=== PATIENT | female | born 1955 | race Caucasian/White ===

== ENCOUNTER 2016-10-19 10:37 | Emergency (ER) | payer BC, OTHER ==
[~2016-10-19] VITALS: Ht 167.6 cm; Wt 62.3 kg
[2016-10-19] MEDS ORDERED: HYDROmorphone 1 MG/ML, 1ML IM ONE (11:30)
[2016-10-19] MEDS ORDERED: METHOCARBAMOL 750 MG TABLET PO ONE (11:30)
[2016-10-19] MEDS ORDERED: HYDROmorphone 2 MG/ML, 1ML ONE (11:37)
[2016-10-19] MEDS ORDERED: METHOCARBAMOL 750 MG TABLET ONE (11:37)
[2016-10-19 12:25] VITALS: BP 135/84
== END 2016-10-19 12:27 | disposition home or self-care (01) ==
LOC: ED 12:20
DX: M62.830 Muscle spasm of back (principal); M54.41 Lumbago with sciatica, right side; J45.909 Unspecified asthma, uncomplicated; J44.9 Chronic obstructive pulmonary disease, unspecified; I10 Essential (primary) hypertension; F17.200 Nicotine dependence, unspecified, uncomplicated
CPT/HCPCS: 96372; 99283; J1170

== ENCOUNTER 2017-03-05 06:42 | Inpatient (IN) | payer OTHER ==
[~2017-03-05] VITALS: Ht 167.6 cm; Wt 62.8 kg
[2017-03-05] MEDS ORDERED: ACYC-113 PO (07:02)
[2017-03-05] MEDS ORDERED: FLUT1AER INH (07:02)
[2017-03-05] MEDS ORDERED: MORPHINE SULFATE 4 MG/ML, 1ML ONE ×2 (07:13→12:17)
[2017-03-05] MEDS: MORPHINE SULFATE 4 MG/ML, 1ML IVPush PRN ×2 (07:24→12:18)
[2017-03-05] MEDS ORDERED: SODIUM CHLORIDE FLUSH 10ML SYR IVF ONE (07:30)
[2017-03-05 07:41] LABS: HEMOGLOBIN 16.1 g/dL (11.7-16.4); WHITE BLOOD COUNT 4.8 x10^3/uL (3.4-10)
[2017-03-05 07:46] LABS: BLOOD UREA NITROGEN 17 mg/dL (7-18)
[2017-03-05 07:52] LABS: IS PT STATUS REG ER OR PRE ER? YES
[2017-03-05] MEDS ORDERED: ACETAMINOPHEN 500 MG TABLET PO ONE (09:30)
[2017-03-05] MEDS ORDERED: ACETAMINOPHEN 500 MG TABLET ONE (09:31)
[2017-03-05] MEDS ORDERED: NITROGLYCERIN 0.4 MG/SPRAY SL PRN (11:30)
[2017-03-05] MEDS ORDERED: ENOXAPARIN 40 MG/0.4 ML SQ SCH (11:30)
[2017-03-05] MEDS ORDERED: LABETALOL 5MG/ML, 20ML IVPush PRN (11:30)
[2017-03-05] MEDS ORDERED: morphine SULFATE 10 MG/ML, 1ML IVPush PRN (11:30)
[2017-03-05] MEDS ORDERED: DOCUSATE 100 MG CAPSULE PO PRN (11:30)
[2017-03-05] MEDS ORDERED: POLYETHYLENE GLYCOL 17 GM PACKET PO PRN (11:30)
[2017-03-05] MEDS ORDERED: BISACODYL 10 MG SUPP PR PRN (11:30)
[2017-03-05] MEDS ORDERED: ONDANSETRON 2MG/ML, 2ML IVPush PRN (11:30)
[2017-03-05] MEDS ORDERED: LORazepam 1MG TABLET PO PRN (11:30)
[2017-03-05] MEDS ORDERED: ONDANSETRON ODT 4 MG PO PRN (11:30)
[2017-03-05] MEDS ORDERED: ACETAMINOPHEN 325 MG TABLET PO PRN (11:30)
[2017-03-05] MEDS ORDERED: ACYCLOVIR 200 MG CAPSULE PO PRN (11:30)
[2017-03-05 13:20] LABS: IS PT STATUS REG ER OR PRE ER? YES
[2017-03-05 18:26] VITALS: BP 118/82
[2017-03-05 19:53] LABS: IS PT STATUS REG ER OR PRE ER? NO
[2017-03-06 02:25] VITALS: BP 109/79
[2017-03-06 05:09] LABS: HEMATOCRIT 43.6 % (34.6-47.8); HEMOGLOBIN 14.7 g/dL (11.7-16.4); WHITE BLOOD COUNT 5.8 x10^3/uL (3.4-10)
[2017-03-06 05:48] LABS: BLOOD UREA NITROGEN 18 mg/dL (7-18)
[2017-03-06 06:40] VITALS: BP 106/74
[2017-03-06] MEDS ORDERED: FLUTICASONE/VILANTEROL 100-25MCG/INH INH SCH (09:00)
== END 2017-03-06 14:48 | disposition home or self-care (01) | DRG 313 ==
LOC: ED 07:08 → EDIP 10:37 → 5SO 13:30 → DCLOUNGE 03-06 14:12
DX: R07.89 Other chest pain (principal); I10 Essential (primary) hypertension; F17.200 Nicotine dependence, unspecified, uncomplicated; G44.209 Tension-type headache, unspecified, not intractable; J44.9 Chronic obstructive pulmonary disease, unspecified; Z86.73 Personal history of transient ischemic attack (TIA), and cerebral infarction without residual deficits; N95.1 Menopausal and female climacteric states; M19.90 Unspecified osteoarthritis, unspecified site; G89.29 Other chronic pain; M54.89 Other dorsalgia; F41.9 Anxiety disorder, unspecified; F32.9 Major depressive disorder, single episode, unspecified; Z90.89 Acquired absence of other organs; Z90.710 Acquired absence of both cervix and uterus
CPT/HCPCS: 36415; 70450; 71010; 78452; 80048; 80061; 82040; 84443; 84484; 85025; 85379; 93005; 93017; 96374; 96376; J1650; A9502; C9898

== ENCOUNTER → 2017-06-24 | Outpatient (CLI) | payer OTHER ==
[~2017-06-24] MED LIST: ACYC-113 PO; FLUT1AER INH
== END | disposition home or self-care (01) ==
LOC: RAD 15:54
PROVIDERS: ATTEND Nurse Practitioner
DX: J43.9 Emphysema, unspecified (principal)
CPT/HCPCS: 71250

== ENCOUNTER → 2017-09-11 | Outpatient (CLI) | payer OTHER ==
[2017-09-11 08:20] LABS: MICROSCOPIC NOT IND
[2017-09-11 08:23] LABS: ALANINE AMINOTRANSFERASE 20 U/L (12-78); ALBUMIN 3.8 g/dL (3.4-5.0); ANION GAP 8 mmol/L (5-15); CALCIUM 8.3 mg/dL (8.5-10.1); CHLORIDE 107 mmol/L (98-107); CREATININE 0.74 mg/dL (0.55-1.02)
[2017-09-11 08:26] LABS: BASOPHILS # (AUTO) 0.03 x10^3/uL (0-0.1); BASOPHILS % (AUTO) 1 % (0-1); EOSINOPHILS # (AUTO) 0.04 x10^3/uL (0-0.4); EOSINOPHILS % (AUTO) 1 % (1-7); LYMPHOCYTES # (AUTO) 2.84 x10^3/uL (1-3.4); LYMPHOCYTES % (AUTO) 43 % (22-44); MD NO; MEAN CORPUSCULAR HEMOGLOBIN 33.6 pg (27.0-34.8); MEAN CORPUSCULAR HGB CONC 34.6 g/dL (32.4-35.8); MEAN PLATELET VOLUME 8.1 fL (7.4-10.4); MONOCYTES # (AUTO) 0.51 x10^3/uL (0.2-0.8); MONOCYTES % (AUTO) 8 % (2-9); NEUTROPHILS # (AUTO) 3.19 x10^3/uL (1.8-6.8); NEUTROPHILS % (AUTO) 48 % (42-75); PLATELET COUNT 259 x10^3/uL (130-400); RED BLOOD COUNT 4.48 x10^6/uL (3.82-5.3); RED CELL DISTRIBUTION WIDTH 13.6 % (9.6-15.2)
[2017-09-11 08:30] LABS: HEMOGLOBIN A1C 5.7 % (4.2-6.3)
[2017-09-11 08:33] LABS: ALKALINE PHOSPHATASE 76 U/L (45-117); BILIRUBIN,TOTAL 1.1 mg/dL (0.2-1.0); TOTAL PROTEIN 7.1 g/dL (6.4-8.2)
== END | disposition home or self-care (01) ==
LOC: LAB 07:57
PROVIDERS: ATTEND Family Medicine
DX: Z00.00 Encounter for general adult medical examination without abnormal findings (principal); Z83.3 Family history of diabetes mellitus; R35.8 Other polyuria
CPT/HCPCS: 36415; 80053; 81003; 83036; 84443; 84681; 85025; 87086

== ENCOUNTER → 2017-09-17 | Outpatient (CLI) | payer OTHER ==
[2017-09-17 10:41] LABS: CALCIUM 8.8 mg/dL (8.5-10.1)
[2017-09-17 11:00] LABS: C-REACTIVE PROTEIN, QUANT 0.03 mg/dL (0.02-0.49)
== END | disposition home or self-care (01) ==
LOC: LAB 10:08
PROVIDERS: ATTEND Nurse Practitioner Family
DX: R53.83 Other fatigue (principal); E83.51 Hypocalcemia; M25.50 Pain in unspecified joint
CPT/HCPCS: 36415; 82306; 82310; 83970; 84550; 85651; 86038; 86140; 86430

== ENCOUNTER 2018-06-01 08:46 | Emergency (ER) | payer OTHER ==
[~2018-06-01] VITALS: Ht 167.6 cm; Wt 65.0 kg
[2018-06-01] MEDS ORDERED: ALBUTEROL/IPRATROPIUM 2.5MG/0.5MG, 3 ML NPPB ONE (09:30)
[2018-06-01 09:37] LABS: BASOPHILS # (AUTO) 0.03 x10^3/uL (0-0.1); BASOPHILS % (AUTO) 1 % (0-1); EOSINOPHILS # (AUTO) 0.05 x10^3/uL (0-0.4); EOSINOPHILS % (AUTO) 1 % (1-7); LYMPHOCYTES # (AUTO) 2.01 x10^3/uL (1-3.4); LYMPHOCYTES % (AUTO) 40 % (22-44); MD NO; MEAN CORPUSCULAR HEMOGLOBIN 32.8 pg (27.0-34.8); MEAN CORPUSCULAR HGB CONC 33.7 g/dL (32.4-35.8); MEAN CORPUSCULAR VOLUME 97.4 fL (80-100); MEAN PLATELET VOLUME 8.6 fL (7.4-10.4); MONOCYTES # (AUTO) 0.43 x10^3/uL (0.2-0.8); MONOCYTES % (AUTO) 9 % (2-9); NEUTROPHILS # (AUTO) 2.51 x10^3/uL (1.8-6.8); NEUTROPHILS % (AUTO) 50 % (42-75); PLATELET COUNT 233 x10^3/uL (130-400); RED BLOOD COUNT 4.31 x10^6/uL (3.82-5.3); RED CELL DISTRIBUTION WIDTH 13.4 % (9.6-15.2)
[2018-06-01 09:46] LABS: ALBUMIN 3.5 g/dL (3.4-5.0); ANION GAP 7 mmol/L (5-15); CALCIUM 8.4 mg/dL (8.5-10.1); CHLORIDE 113 mmol/L (98-107); CREATININE 0.68 mg/dL (0.55-1.02)
[2018-06-01] MEDS ORDERED: ALBUTEROL/IPRATROPIUM 2.5MG/0.5MG, 3 ML ONE (09:47)
[2018-06-01 09:50] LABS: TROPONIN I < 0.015 ng/mL (0.000-0.045)
[2018-06-01 11:44] VITALS: BP 125/77
== END 2018-06-01 12:18 | disposition home or self-care (01) ==
LOC: ED 11:01
DX: J44.1 Chronic obstructive pulmonary disease with (acute) exacerbation (principal); I10 Essential (primary) hypertension; F17.200 Nicotine dependence, unspecified, uncomplicated; Z86.73 Personal history of transient ischemic attack (TIA), and cerebral infarction without residual deficits
CPT/HCPCS: 36415; 71045; 80048; 82040; 83880; 84484; 85025; 93005; 94640; 99284; J7512; J7620

== ENCOUNTER 2019-01-06 10:29 | Emergency (ER) | payer OTHER ==
[~2019-01-06] VITALS: Ht 167.6 cm; Wt 67.2 kg
--- NOTE | 2019-01-06 11:07 | NUR ---
PT WITH C/O CP 5-01/19 THAT STARTED THIS AM, IT IS INTERMITTANT IN NATURE. EKG DONE IN TRIAGE. PT STATES SHE IS SHORT OF BREATH, CANT WALK FROM HER HOUSE TO HER CARE WITHOUT GETTING SOB. PT STATES SHE DOES WEAR HOME O2 AT NIGHT, SHE HAS A HX OF COPD. SHE TOOK HER PULSE OX AND IT WAS 86%. PT STATES "IM JUST POOPED"PT PLACED ON CONT PULSE OX, CARDIAC MONTIOR, NIBP.
[2019-01-06 11:10] LABS: BASOPHILS # (AUTO) 0.02 x10^3/uL (0-0.1); BASOPHILS % (AUTO) 0 % (0-1); EOSINOPHILS # (AUTO) 0.04 x10^3/uL (0-0.4); EOSINOPHILS % (AUTO) 1 % (1-7); LYMPHOCYTES # (AUTO) 2.09 x10^3/uL (1-3.4); LYMPHOCYTES % (AUTO) 39 % (22-44); MD NO; MEAN CORPUSCULAR HEMOGLOBIN 33.9 pg (27.0-34.8); MEAN CORPUSCULAR HGB CONC 33.9 g/dL (32.4-35.8); MEAN CORPUSCULAR VOLUME 99.9 fL (80-100); MEAN PLATELET VOLUME 8.3 fL (7.4-10.4); MONOCYTES # (AUTO) 0.37 x10^3/uL (0.2-0.8); MONOCYTES % (AUTO) 7 % (2-9); NEUTROPHILS # (AUTO) 2.88 x10^3/uL (1.8-6.8); NEUTROPHILS % (AUTO) 53 % (42-75); PLATELET COUNT 262 x10^3/uL (130-400); RED BLOOD COUNT 4.51 x10^6/uL (3.82-5.3); RED CELL DISTRIBUTION WIDTH 13.5 % (9.6-15.2)
[2019-01-06 11:20] LABS: ALBUMIN 3.7 g/dL (3.4-5.0); ANION GAP 4 mmol/L (5-15); CALCIUM 9.1 mg/dL (8.5-10.1); CHLORIDE 111 mmol/L (98-107); CREATININE 0.84 mg/dL (0.55-1.02)
[2019-01-06] MEDS ORDERED: ALBUTEROL/IPRATROPIUM 2.5MG/0.5MG, 3 ML ONE (11:20)
[2019-01-06] MEDS: ALBUTEROL/IPRATROPIUM 2.5MG/0.5MG, 3 ML NPPB SCH ×2 (11:23→11:24)
[2019-01-06 11:24] LABS: TROPONIN I < 0.015 ng/mL (0.000-0.045)
--- NOTE | 2019-01-06 12:00 | NUR ---
PT MEDICATED PER SEP, PT GIVEN DISCHARGE INSTRUCTIONS, UNDERSTANDING STATED. PT ESCORTED TO CHECK OUT WITH ALL BELONGINGS
[2019-01-06 12:19] VITALS: BP 115/73
== END 2019-01-06 12:19 | disposition home or self-care (01) ==
LOC: ED 11:28
DX: R07.2 Precordial pain (principal); J43.9 Emphysema, unspecified; I10 Essential (primary) hypertension; E11.9 Type 2 diabetes mellitus without complications; Z86.73 Personal history of transient ischemic attack (TIA), and cerebral infarction without residual deficits; Z90.710 Acquired absence of both cervix and uterus; F17.200 Nicotine dependence, unspecified, uncomplicated
CPT/HCPCS: 36415; 71045; 80048; 82040; 83880; 84484; 85025; 93005; 94640; 99284; J7512; J7620

== ENCOUNTER 2019-02-24 14:16 | Outpatient (CLI) | payer OTHER | END 2019-02-24 23:59 | disposition home or self-care (01) | LOC: CFH 14:16 | PROVIDERS: ATTEND Nurse Practitioner | DX: Z12.2 Encounter for screening for malignant neoplasm of respiratory organs (principal); J43.9 Emphysema, unspecified; R91.8 Other nonspecific abnormal finding of lung field; I25.10 Atherosclerotic heart disease of native coronary artery without angina pectoris; Z87.891 Personal history of nicotine dependence | CPT/HCPCS: G0297 ==

== ENCOUNTER → 2019-08-17 | Outpatient (CLI) | payer OTHER | END | disposition home or self-care (01) | LOC: CFH 10:45 | PROVIDERS: ATTEND Internal Medicine | DX: Z13.820 Encounter for screening for osteoporosis (principal); N95.8 Other specified menopausal and perimenopausal disorders; M85.88 Other specified disorders of bone density and structure, other site; Z78.0 Asymptomatic menopausal state | CPT/HCPCS: 77080 ==

== ENCOUNTER → 2019-08-23 | Outpatient (CLI) | payer OTHER ==
[2019-08-23 07:24] LABS: BASOPHILS # (AUTO) 0.04 x10^3/uL (0-0.1); BASOPHILS % (AUTO) 1 % (0-1); EOSINOPHILS # (AUTO) 0.08 x10^3/uL (0-0.4); EOSINOPHILS % (AUTO) 1 % (1-7); LYMPHOCYTES # (AUTO) 2.17 x10^3/uL (1-3.4); LYMPHOCYTES % (AUTO) 41 % (22-44); MD NO; MEAN CORPUSCULAR HEMOGLOBIN 33.7 pg (27.0-34.8); MEAN CORPUSCULAR HGB CONC 34.1 g/dL (32.4-35.8); MEAN CORPUSCULAR VOLUME 98.8 fL (80-100); MEAN PLATELET VOLUME 7.9 fL (7.4-10.4); MONOCYTES # (AUTO) 0.42 x10^3/uL (0.2-0.8); MONOCYTES % (AUTO) 8 % (2-9); NEUTROPHILS # (AUTO) 2.63 x10^3/uL (1.8-6.8); NEUTROPHILS % (AUTO) 49 % (42-75); PLATELET COUNT 263 x10^3/uL (130-400); RED BLOOD COUNT 4.56 x10^6/uL (3.82-5.3); RED CELL DISTRIBUTION WIDTH 12.6 % (9.6-15.2)
[2019-08-23 10:30] LABS: ALANINE AMINOTRANSFERASE 21 U/L (12-78); ALBUMIN 3.6 g/dL (3.4-5.0); ANION GAP 6 mmol/L (5-15); CALCIUM 9.2 mg/dL (8.5-10.1); CHLORIDE 108 mmol/L (98-107); CHOLESTEROL, TOTAL 178 mg/dL (140-239); CREATININE 0.76 mg/dL (0.55-1.02); TRIGLYCERIDES 101 mg/dL (50-200); VLDL CHOLESTEROL 20 mg/dL (0-25)
[2019-08-23 10:40] LABS: ALKALINE PHOSPHATASE 82 U/L (45-117); BILIRUBIN,TOTAL 1.2 mg/dL (0.2-1.0); CHOL/HDL RATIO 2.9; HDL CHOL % 35 % (28-40); HDL CHOLESTEROL (DIRECT) 62 mg/dL (40-60); LDL CHOLESTEROL,CALCULATED 96 mg/dL (54-169); LDL/HDL RATIO 1.5 (0.5-3.0); TOTAL PROTEIN 6.9 g/dL (6.4-8.2)
== END | disposition home or self-care (01) ==
LOC: LAB 07:09
PROVIDERS: ATTEND Internal Medicine
DX: E78.5 Hyperlipidemia, unspecified (principal); J44.9 Chronic obstructive pulmonary disease, unspecified; R06.00 Dyspnea, unspecified
CPT/HCPCS: 36415; 80053; 80061; 84443; 85025

== ENCOUNTER → 2020-03-20 | Outpatient (CLI) | payer OTHER | END | disposition home or self-care (01) | LOC: CFH 16:11 | PROVIDERS: ATTEND Obstetrics & Gynecology | DX: J43.9 Emphysema, unspecified (principal); R91.8 Other nonspecific abnormal finding of lung field; J98.4 Other disorders of lung; I25.10 Atherosclerotic heart disease of native coronary artery without angina pectoris | CPT/HCPCS: 71250 ==

== ENCOUNTER 2020-04-09 07:08 | Outpatient (CLI) | payer OTHER ==
[2020-04-09 07:28] LABS: BASOPHILS # (AUTO) 0.04 x10^3/uL (0-0.1); BASOPHILS % (AUTO) 1 % (0-1); EOSINOPHILS # (AUTO) 0.04 x10^3/uL (0-0.4); EOSINOPHILS % (AUTO) 1 % (1-7); LYMPHOCYTES # (AUTO) 3.22 x10^3/uL (1-3.4); LYMPHOCYTES % (AUTO) 45 % (22-44); MD NO; MEAN CORPUSCULAR HEMOGLOBIN 32.8 pg (27.0-34.8); MEAN CORPUSCULAR HGB CONC 32.8 g/dL (32.4-35.8); MONOCYTES # (AUTO) 0.46 x10^3/uL (0.2-0.8); MONOCYTES % (AUTO) 7 % (2-9); NEUTROPHILS # (AUTO) 3.37 x10^3/uL (1.8-6.8); NEUTROPHILS % (AUTO) 47 % (42-75); PLATELET COUNT 297 x10^3/uL (130-400); RED BLOOD COUNT 4.94 x10^6/uL (3.82-5.3)
[2020-04-09 07:38] LABS: ALANINE AMINOTRANSFERASE 21 U/L (12-78); ALBUMIN 3.7 g/dL (3.4-5.0); ANION GAP 4 mmol/L (5-15); CALCIUM 9.3 mg/dL (8.5-10.1); CHLORIDE 109 mmol/L (98-107); CHOLESTEROL, TOTAL 223 mg/dL (140-239); CREATININE 0.83 mg/dL (0.55-1.02)
[2020-04-09 07:46] LABS: ALKALINE PHOSPHATASE 85 U/L (45-117); BILIRUBIN,TOTAL 0.9 mg/dL (0.2-1.0); FREE T4 (FREE THYROXINE) 1.05 ng/dL (0.76-1.46); HDL CHOL % 33 % (28-40); HDL CHOLESTEROL (DIRECT) 74 mg/dL (40-60); TOTAL PROTEIN 7.3 g/dL (6.4-8.2)
[2020-04-10 13:22] LABS: LDL CHOLESTEROL,CALCULATED 133 mg/dL (54-169); LDL/HDL RATIO 1.8 (0.5-3.0); TRIGLYCERIDES 80 mg/dL (50-200); VLDL CHOLESTEROL 16 mg/dL (0-25)
== END 2020-04-09 23:59 | disposition home or self-care (01) ==
LOC: LAB 07:08
PROVIDERS: ATTEND Internal Medicine
DX: R00.2 Palpitations (principal); R42 Dizziness and giddiness; R53.83 Other fatigue
CPT/HCPCS: 36415; 80053; 80061; 84439; 84443; 85025

== ENCOUNTER → 2020-04-12 | Outpatient (CLI) | payer OTHER | END | disposition home or self-care (01) | LOC: CFH 15:45 | PROVIDERS: ATTEND Internal Medicine | DX: I65.23 Occlusion and stenosis of bilateral carotid arteries (principal); E78.5 Hyperlipidemia, unspecified; F17.200 Nicotine dependence, unspecified, uncomplicated | CPT/HCPCS: 93880 ==

== ENCOUNTER → 2020-08-07 | Outpatient (CLI) | payer OTHER ==
[~2020-08-07] MED LIST changes: +REGADENOSON 0.4 MG/5 ML SYRINGE ONE
== END | disposition home or self-care (01) ==
LOC: CVU 06:47
PROVIDERS: ATTEND Internal Medicine Cardiovascular Disease
DX: I08.8 Other rheumatic multiple valve diseases (principal); R42 Dizziness and giddiness; R06.02 Shortness of breath
CPT/HCPCS: 78452; 93017; 93306; 93356; A9502; J2785

== ENCOUNTER 2020-08-20 15:06 | Inpatient (IN) | payer OTHER ==
[~2020-08-20] VITALS: Ht 167.6 cm; Wt 69.5 kg
[~2020-08-20 15:06] MED LIST changes: -REGADENOSON 0.4 MG/5 ML SYRINGE ONE
--- NOTE | 2020-08-20 15:35 | NUR ---
GAS DISPENSER: PT TO ROOM FROM TRIAGE VIA WHEELCHAIR FOR COMFORT ON O2 VIA NC, ACCOMPANIED BY STRATEGIC SOURCING CONSULTANT.
--- NOTE | 2020-08-20 15:45 | NUR ---
PT HERE FOR C/O SOB SINCE THURSDAY. HX COPD AND ASTHMA. PLACED ON CARDIAC AND VITALS MONITORS. SPO2 97% ON 2L NC. CALL LIGHT PLACED WITHIN REACH.
[2020-08-20 16:19] LABS: BASOPHILS % (AUTO) 1 % (0-1); EOSINOPHILS % (AUTO) 8 % (1-7); LYMPHOCYTES % (AUTO) 38 % (22-44); MEAN CORPUSCULAR HGB CONC 35.2 g/dL (32.4-35.8); MEAN PLATELET VOLUME 7.8 fL (7.4-10.4); MONOCYTES % (AUTO) 10 % (2-9); NEUTROPHILS % (AUTO) 44 % (42-75); PLATELET COUNT 292 x10^3/uL (130-400); RED BLOOD COUNT 4.48 x10^6/uL (3.82-5.3); RED CELL DISTRIBUTION WIDTH 13.1 % (9.6-15.2)
[2020-08-20 16:23] LABS: MD NO
[2020-08-20 16:26] LABS: ALBUMIN 3.5 g/dL (3.4-5.0); ANION GAP 7 mmol/L (5-15); CALCIUM 8.6 mg/dL (8.5-10.1); CHLORIDE 112 mmol/L (98-107); CREATININE 0.79 mg/dL (0.55-1.02)
[2020-08-20] MEDS ORDERED: SODIUM CHLORIDE 0.9% 1,000ML IVBOLUS ONE (16:30)
[2020-08-20] MEDS ORDERED: AZITHROMYCIN 500 MG in SODIUM CHLORIDE 0.9% 250 ML IV ONE (16:30)
[2020-08-20] MEDS ORDERED: CEFTRIAXONE PMX 1GM/50ML 50 ML IV ONE (16:30)
[2020-08-20] MEDS ORDERED: CEFTRIAXONE PMX 1GM/50ML 50 ML ONE (16:38)
--- NOTE | 2020-08-20 16:54 | NUR ---
PIV PLACED, 1 SET OF BLOOD CULTURES DRAWN BY THIS RN.
[2020-08-20] MEDS ORDERED: ALBUTEROL/IPRATROPIUM 2.5MG/0.5MG, 3 ML NPPB ONE (17:00)
[2020-08-20] MEDS ORDERED: ALBUTEROL/IPRATROPIUM 2.5MG/0.5MG, 3 ML ONE (17:27)
--- NOTE | 2020-08-20 17:56 | NUR ---
BREAK RN: PT UP TO BATHROOM, SOB WITH MIN EXCERTION, RA 71%, PLACED BACK ON OXGYEN AT 3LNC.
[2020-08-20] MEDS ORDERED: SODIUM CHLORIDE FLUSH 10ML SYR IVF PRN (19:30)
--- NOTE | 2020-08-20 19:38 | NUR ---
Assist RN: patient up to BR with no assistance. Provided portable O2 tank.
[2020-08-20] MEDS ORDERED: BUSP5TAB2 PO (20:05)
[2020-08-20] MEDS ORDERED: MONT10TA17 PO (20:05)
[2020-08-20] MEDS ORDERED: ACYC-114 PO (20:25)
[2020-08-20] MEDS ORDERED: GLYC10.7 PO (20:25)
--- NOTE | 2020-08-20 20:32 | NUR ---
REPORT TO SHIRA MULLINS.
[2020-08-20 20:58] VITALS: BP 140/85
[2020-08-20] MEDS: BUSPIRONE 5 MG TABLET PO SCH ×2 (21:08→21:27)
[2020-08-20] MEDS: ENOXAPARIN 40 MG/0.4 ML SQ SCH (21:30)
[2020-08-20] MEDS ORDERED: LABETALOL 5MG/ML, 20ML IVPush PRN (21:30)
[2020-08-20] MEDS ORDERED: GLYCOPYRROLATE PO SCH (21:30)
[2020-08-20] MEDS ORDERED: DOCUSATE 100 MG CAPSULE PO PRN (21:30)
[2020-08-20] MEDS ORDERED: ONDANSETRON 2MG/ML, 2ML IVPush PRN (21:30)
[2020-08-20] MEDS ORDERED: LIDODERM 5% PATCH TD PRN (21:30)
[2020-08-20] MEDS ORDERED: FORMOTEROL FUM PO SCH (21:30)
[2020-08-20 22:08] LABS: TROPONIN I < 0.015 ng/mL (0.000-0.045)
[2020-08-20] MEDS: MELATONIN 5 MG TABLET PO PRN (22:21)
[2020-08-21 00:40] VITALS: BP 110/69
[2020-08-21 05:33] LABS: BASOPHILS % (AUTO) 0 % (0-1); EOSINOPHILS % (AUTO) 1 % (1-7); LYMPHOCYTES % (AUTO) 24 % (22-44); MEAN CORPUSCULAR HEMOGLOBIN 34.2 pg (27.0-34.8); MONOCYTES % (AUTO) 8 % (2-9); NEUTROPHILS % (AUTO) 67 % (42-75); PLATELET COUNT 288 x10^3/uL (130-400); RED BLOOD COUNT 4.03 x10^6/uL (3.82-5.3); RED CELL DISTRIBUTION WIDTH 13.2 % (9.6-15.2)
[2020-08-21 05:36] LABS: MD NO
[2020-08-21 05:47] LABS: CALCIUM 9.3 mg/dL (8.5-10.1); CHLORIDE 112 mmol/L (98-107)
[2020-08-21 05:59] LABS: ANION GAP 4 mmol/L (5-15); CREATININE 0.58 mg/dL (0.55-1.02)
[2020-08-21 06:59] VITALS: BP 108/72
[2020-08-21] MEDS ORDERED: POTASSIUM CHLORIDE 20 MEQ TAB.ER.PRT PO SCH (08:30)
[2020-08-21] MEDS ORDERED: POTASSIUM CHLORIDE 20 MEQ TAB.ER.PRT ONE (08:44)
[2020-08-21] MEDS: BUSPIRONE 5 MG TABLET PO SCH ×2 (08:49→20:04)
[2020-08-21] MEDS: MONTELUKAST 10 MG TABLET PO SCH (08:50)
[2020-08-21] MEDS: methylPREDNISolone SOD SUCC 125 MG/2 ML IVPush SCH ×3 (08:51→20:05)
[2020-08-21] MEDS: ACYCLOVIR 400 MG TABLET PO SCH ×3 (08:52→20:23)
[2020-08-21] MEDS: FORMOTEROL FUM PO SCH ×2 (08:54→20:23)
[2020-08-21] MEDS: GLYCOPYRROLATE PO SCH ×2 (08:54→20:23)
[2020-08-21 08:55] LABS: ALBUMIN 3.3 g/dL (3.4-5.0); BILIRUBIN, DIRECT 0.1 mg/dL (0.1-0.2)
[2020-08-21 08:57] LABS: BILIRUBIN,INDIRECT 0.6 mg/dL (0.0-2.0); BILIRUBIN,TOTAL 0.7 mg/dL (0.2-1.0); TOTAL PROTEIN 6.2 g/dL (6.4-8.2)
[2020-08-21] MEDS ORDERED: FLUTICASONE/VILANTEROL 100-25MCG/INH INH SCH (09:00)
[2020-08-21 13:23] VITALS: BP 109/72
[2020-08-21] MEDS: CEFTRIAXONE PMX 1GM/50ML 50 ML IV SCH (16:00)
[2020-08-21] MEDS: ALBUTEROL-IPRATROPIUM MDI INH INH PRN (16:00)
[2020-08-21] MEDS: AZITHROMYCIN 500 MG in SODIUM CHLORIDE 0.9% 250 ML IV SCH (17:07)
[2020-08-21 18:37] VITALS: BP 117/73
[2020-08-21] MEDS: ENOXAPARIN 40 MG/0.4 ML SQ SCH (20:23)
[2020-08-21] MEDS: FLUTICASONE/VILANTEROL 100-25MCG/INH INH SCH (20:23)
[2020-08-21] MEDS: MELATONIN 5 MG TABLET PO PRN (23:52)
[2020-08-22 00:55] VITALS: BP 116/76
[2020-08-22] MEDS: methylPREDNISolone SOD SUCC 125 MG/2 ML IVPush SCH ×4 (03:04→21:17)
[2020-08-22 05:30] LABS: BASOPHILS % (AUTO) 0 % (0-1); EOSINOPHILS % (AUTO) 0 % (1-7); LYMPHOCYTES % (AUTO) 11 % (22-44); MEAN CORPUSCULAR HEMOGLOBIN 33.2 pg (27.0-34.8); MEAN CORPUSCULAR HGB CONC 34.1 g/dL (32.4-35.8); MONOCYTES % (AUTO) 2 % (2-9); NEUTROPHILS % (AUTO) 86 % (42-75); PLATELET COUNT 276 x10^3/uL (130-400); RED CELL DISTRIBUTION WIDTH 13.1 % (9.6-15.2)
[2020-08-22 05:41] LABS: ANION GAP 5 mmol/L (5-15); CALCIUM 9.1 mg/dL (8.5-10.1); CHLORIDE 109 mmol/L (98-107); CREATININE 0.61 mg/dL (0.55-1.02); MD NO
[2020-08-22 05:51] LABS: FREE T4 (FREE THYROXINE) 1.14 ng/dL (0.76-1.46)
[2020-08-22 06:43] VITALS: BP 105/72
[2020-08-22] MEDS: MONTELUKAST 10 MG TABLET PO SCH (07:59)
[2020-08-22] MEDS: BUSPIRONE 5 MG TABLET PO SCH ×2 (07:59→21:17)
[2020-08-22] MEDS: FLUTICASONE/VILANTEROL 100-25MCG/INH INH SCH ×2 (08:00→20:33)
[2020-08-22] MEDS: GLYCOPYRROLATE PO SCH ×2 (08:02→21:17)
[2020-08-22] MEDS: FORMOTEROL FUM PO SCH ×2 (08:02→21:17)
[2020-08-22] MEDS: ACYCLOVIR 400 MG TABLET PO SCH ×3 (08:02→21:17)
[2020-08-22] MEDS: ACETAMINOPHEN 325 MG TABLET PO PRN (10:05)
[2020-08-22] MEDS ORDERED: OMNIPAQUE 350 MG/ML, 75ML BOTTLE ONE (10:50)
[2020-08-22 13:46] VITALS: BP 106/65
[2020-08-22] MEDS: CEFTRIAXONE PMX 1GM/50ML 50 ML IV SCH (16:10)
[2020-08-22] MEDS: AZITHROMYCIN 500 MG in SODIUM CHLORIDE 0.9% 250 ML IV SCH (16:30)
[2020-08-22] MEDS: ALBUTEROL-IPRATROPIUM MDI INH INH PRN (18:18)
[2020-08-22 19:27] VITALS: BP 107/69
[2020-08-22] MEDS ORDERED: MELATONIN 5 MG TABLET PO PRN (19:30)
[2020-08-22] MEDS: MELATONIN 5 MG TABLET PO PRN (21:17)
[2020-08-22] MEDS: ENOXAPARIN 40 MG/0.4 ML SQ SCH (21:17)
[2020-08-23 01:11] VITALS: BP 118/78
[2020-08-23] MEDS: methylPREDNISolone SOD SUCC 125 MG/2 ML IVPush SCH ×2 (02:33→08:45)
[2020-08-23 05:32] LABS: BASOPHILS % (AUTO) 0 % (0-1); EOSINOPHILS % (AUTO) 0 % (1-7); LYMPHOCYTES % (AUTO) 8 % (22-44); MEAN CORPUSCULAR HEMOGLOBIN 33.2 pg (27.0-34.8); MEAN PLATELET VOLUME 7.8 fL (7.4-10.4); MONOCYTES % (AUTO) 2 % (2-9); NEUTROPHILS % (AUTO) 91 % (42-75); PLATELET COUNT 283 x10^3/uL (130-400)
[2020-08-23 05:38] LABS: MD NO
[2020-08-23 05:44] LABS: ANION GAP 4 mmol/L (5-15); CALCIUM 9.1 mg/dL (8.5-10.1); CHLORIDE 110 mmol/L (98-107); CREATININE 0.65 mg/dL (0.55-1.02)
[2020-08-23] MEDS: ACETAMINOPHEN 325 MG TABLET PO PRN (05:54)
[2020-08-23] MEDS: ALBUTEROL-IPRATROPIUM MDI INH INH PRN ×2 (05:54→14:23)
[2020-08-23 06:58] VITALS: BP 117/78
[2020-08-23] MEDS: MONTELUKAST 10 MG TABLET PO SCH (08:46)
[2020-08-23] MEDS: ACYCLOVIR 400 MG TABLET PO SCH ×3 (08:47→21:44)
[2020-08-23] MEDS: BUSPIRONE 5 MG TABLET PO SCH ×2 (08:47→21:45)
[2020-08-23] MEDS: GLYCOPYRROLATE PO SCH ×2 (08:48→21:44)
[2020-08-23] MEDS: FORMOTEROL FUM PO SCH ×2 (08:48→21:44)
[2020-08-23] MEDS: FLUTICASONE/VILANTEROL 100-25MCG/INH INH SCH ×3 (09:00→21:43)
[2020-08-23 13:10] VITALS: BP 110/70
[2020-08-23] MEDS: AZITHROMYCIN 500 MG in SODIUM CHLORIDE 0.9% 250 ML IV SCH (17:12)
[2020-08-23] MEDS: CEFTRIAXONE PMX 1GM/50ML 50 ML IV SCH (18:24)
[2020-08-23 19:33] VITALS: BP 118/73
[2020-08-23] MEDS: ENOXAPARIN 40 MG/0.4 ML SQ SCH (21:44)
[2020-08-23] MEDS: MELATONIN 5 MG TABLET PO PRN (21:45)
[2020-08-24 01:16] VITALS: BP 129/84
[2020-08-24] MEDS: ALBUTEROL-IPRATROPIUM MDI INH INH PRN (05:31)
[2020-08-24 07:10] VITALS: BP 111/67
[2020-08-24] MEDS ORDERED: FLUTICASONE/VILANTEROL 100-25MCG/INH INH SCH ×2 (09:00→18:00)
[2020-08-24] MEDS: GLYCOPYRROLATE PO SCH ×2 (09:00→09:32)
[2020-08-24] MEDS: FORMOTEROL FUM PO SCH ×2 (09:00→09:32)
[2020-08-24] MEDS: MONTELUKAST 10 MG TABLET PO SCH (09:30)
[2020-08-24] MEDS: ACYCLOVIR 400 MG TABLET PO SCH ×2 (09:30→16:10)
[2020-08-24] MEDS ORDERED: AMOX500T PO (12:44)
[2020-08-24] MEDS ORDERED: FLUT1AER INH (12:44)
[2020-08-24] MEDS ORDERED: AZIT250T PO (12:44)
[2020-08-24] MEDS ORDERED: PRED20TA PO (12:44)
[2020-08-24] MEDS ORDERED: TIOT18CA INH (12:44)
[2020-08-24] MEDS ORDERED: ACYC-114 PO (12:44)
[2020-08-24] MEDS ORDERED: IPRA4AER INH (12:44)
[2020-08-24] MEDS: BUSPIRONE 5 MG TABLET PO SCH (12:49)
[2020-08-24] MEDS ORDERED: HYDR-826 PO (12:52)
[2020-08-24] MEDS: CEFTRIAXONE PMX 1GM/50ML 50 ML IV SCH (16:10)
[2020-08-24] MEDS: AZITHROMYCIN 500 MG in SODIUM CHLORIDE 0.9% 250 ML IV SCH (17:07)
[2020-08-25] MEDS ORDERED: FLUTICASONE/VILANTEROL 100-25MCG/INH INH SCH (06:00)
== END 2020-08-24 18:59 | disposition home or self-care (01) | DRG 193 ==
LOC: ED 17:19 → EDIP 19:25 → 3N 20:50
PROVIDERS: ADMIT Family Medicine; ATTEND Family Medicine
DX: J15.9 Unspecified bacterial pneumonia (principal); J96.21 Acute and chronic respiratory failure with hypoxia; I50.32 Chronic diastolic (congestive) heart failure; J43.9 Emphysema, unspecified; M19.90 Unspecified osteoarthritis, unspecified site; I27.20 Pulmonary hypertension, unspecified; G89.29 Other chronic pain; F41.9 Anxiety disorder, unspecified; F17.210 Nicotine dependence, cigarettes, uncomplicated; E87.6 Hypokalemia; A60.00 Herpesviral infection of urogenital system, unspecified; I11.0 Hypertensive heart disease with heart failure; Z86.73 Personal history of transient ischemic attack (TIA), and cerebral infarction without residual deficits; Z90.710 Acquired absence of both cervix and uterus; Z82.3 Family history of stroke; Z82.49 Family history of ischemic heart disease and other diseases of the circulatory system; Z83.3 Family history of diabetes mellitus; Z98.82 Breast implant status
CPT/HCPCS: 36415; 71045; 71275; 80048; 80076; 82040; 83605; 83735; 84145; 84439; 84443; 84481; 84484; 85025; 87040; 93005; 94640; 96365; 99285; G0378; J0456; J0696; Q9967; J2930; J7030; J7050; J7512

== ENCOUNTER 2020-09-16 15:44 | Emergency (ER) | payer OTHER ==
[~2020-09-16] VITALS: Ht 167.6 cm; Wt 70.2 kg
[~2020-09-16 15:44] MED LIST changes: +ACYC-114 PO; +AMOX500T PO; +AZIT250T PO; +BUSP5TAB2 PO; +GLYC10.7 PO; +HYDR-826 PO; +IPRA4AER INH; +MONT10TA17 PO; +PRED20TA PO; +TIOT18CA INH
--- NOTE | 2020-09-16 16:00 | NUR ---
Pt reports she has had intermittent chest pain x2 days. Describes the pain as non-radiating pressure in her chest accompanied with SOB. Taking acyclovir currently and took her inhaler this morning. Recent diagnosis of pneumonia, tested COVID negative. Lung sounds clear bilaterally throughout. Pt hx: COPD (wears 3L 02 at home), pneumonia about 1 month ago, emphysema
[2020-09-16 17:30] LABS: BASOPHILS % (AUTO) 1 % (0-1); EOSINOPHILS % (AUTO) 9 % (1-7); LYMPHOCYTES % (AUTO) 36 % (22-44); MEAN CORPUSCULAR HGB CONC 34.8 g/dL (32.4-35.8); MEAN PLATELET VOLUME 7.8 fL (7.4-10.4); MONOCYTES % (AUTO) 10 % (2-9); NEUTROPHILS % (AUTO) 45 % (42-75); PLATELET COUNT 231 x10^3/uL (130-400); RED BLOOD COUNT 4.18 x10^6/uL (3.82-5.3); RED CELL DISTRIBUTION WIDTH 13.2 % (9.6-15.2)
[2020-09-16] MEDS ORDERED: SODIUM CHLORIDE FLUSH 10ML SYR IVF ONE (17:30)
[2020-09-16] MEDS ORDERED: CEFTRIAXONE PMX 1GM/50ML 50 ML IVPB ONE (17:30)
[2020-09-16] MEDS ORDERED: AZITHROMYCIN 500 MG in SODIUM CHLORIDE 0.9% 250 ML IV ONE (17:30)
[2020-09-16] MEDS ORDERED: ASPIRIN 81 MG TABLET CHEW PO ONE (17:30)
[2020-09-16 17:35] LABS: ALBUMIN 3.7 g/dL (3.4-5.0); ANION GAP 5 mmol/L (5-15); CALCIUM 8.8 mg/dL (8.5-10.1); CHLORIDE 109 mmol/L (98-107); CREATININE 0.78 mg/dL (0.55-1.02)
[2020-09-16] MEDS ORDERED: ASPIRIN 81 MG TABLET CHEW ONE (17:35)
[2020-09-16 17:38] LABS: TROPONIN I < 0.015 ng/mL (0.000-0.045)
--- NOTE | 2020-09-16 17:46 | NUR ---
Dr. Meléndez at bedside, aspirin administered per eMAR.
[2020-09-16 17:49] LABS: MD SCAN
[2020-09-16] MEDS ORDERED: CEFTRIAXONE PMX 1GM/50ML 50 ML ONE (18:02)
--- NOTE | 2020-09-16 18:12 | NUR ---
Blood cultures drawn, IV started, rocephin started.
--- NOTE | 2020-09-16 19:11 | NUR ---
Rocephin complete. Zithromax infusing per eMAR. Provided pt warm blanket.
--- NOTE | 2020-09-16 19:31 | NUR ---
Note melanie in EDM - 09/16/20 at 1931 by JESSICA RN at bedside, pt shaking and shivering reporting she is freezing, tempt 98.6. Pt also reporting sudden chest pain. Informing Dr. Meléndez.
--- NOTE | 2020-09-16 19:38 | NUR ---
Dr. Meléndez at bedside.
--- NOTE | 2020-09-16 20:15 | NUR ---
Zithromax infusion complete. IV removed, catheter intact, hemostasis achieved, dressing applied. Pt agrees with and understands discharge plan, instructions, prescriptions.
[2020-09-16 20:16] VITALS: BP 131/74
== END 2020-09-16 20:26 | disposition home or self-care (01) ==
LOC: ED 16:32
DX: J18.9 Pneumonia, unspecified organism (principal); R07.89 Other chest pain; I10 Essential (primary) hypertension; J43.9 Emphysema, unspecified; Z86.73 Personal history of transient ischemic attack (TIA), and cerebral infarction without residual deficits; Z90.710 Acquired absence of both cervix and uterus; Z90.89 Acquired absence of other organs; Z87.891 Personal history of nicotine dependence
CPT/HCPCS: 36415; 71045; 80048; 82040; 83605; 84484; 85025; 87040; 93005; 96365; 96366; 96368; 99285; J0456; J0696; J7050

== ENCOUNTER → 2020-09-24 | Outpatient (CLI) | payer OTHER ==
[2020-09-24 14:28] LABS: BASOPHILS % (AUTO) 1 % (0-1); EOSINOPHILS % (AUTO) 1 % (1-7); LYMPHOCYTES % (AUTO) 40 % (22-44); MEAN CORPUSCULAR HEMOGLOBIN 33.7 pg (27.0-34.8); MEAN CORPUSCULAR HGB CONC 34.7 g/dL (32.4-35.8); MEAN PLATELET VOLUME 7.9 fL (7.4-10.4); MONOCYTES % (AUTO) 8 % (2-9); NEUTROPHILS % (AUTO) 51 % (42-75); PLATELET COUNT 272 x10^3/uL (130-400); RED BLOOD COUNT 4.54 x10^6/uL (3.82-5.3); RED CELL DISTRIBUTION WIDTH 13.4 % (9.6-15.2)
[2020-09-24 14:34] LABS: MD NO
[2020-09-24 14:37] LABS: ALANINE AMINOTRANSFERASE 22 U/L (12-78); ALBUMIN 3.9 g/dL (3.4-5.0); ANION GAP 5 mmol/L (5-15); CALCIUM 8.9 mg/dL (8.5-10.1); CHLORIDE 108 mmol/L (98-107); CREATININE 0.83 mg/dL (0.55-1.02)
[2020-09-24 14:47] LABS: ALKALINE PHOSPHATASE 74 U/L (45-117); BILIRUBIN,TOTAL 1.1 mg/dL (0.2-1.0); TOTAL PROTEIN 7.1 g/dL (6.4-8.2)
== END | disposition home or self-care (01) ==
LOC: LAB 14:12
PROVIDERS: ATTEND Internal Medicine
DX: E78.5 Hyperlipidemia, unspecified (principal); J44.9 Chronic obstructive pulmonary disease, unspecified; F41.9 Anxiety disorder, unspecified
CPT/HCPCS: 36415; 80053; 84443; 85025

== ENCOUNTER → 2020-10-02 | Outpatient (CLI) | payer OTHER ==
[2020-10-02 13:37] LABS: ALBUMIN 3.8 g/dL (3.4-5.0); BILIRUBIN, DIRECT 0.2 mg/dL (0.1-0.2)
[2020-10-02 13:39] LABS: BILIRUBIN,INDIRECT 0.5 mg/dL (0.0-2.0); BILIRUBIN,TOTAL 0.7 mg/dL (0.2-1.0); TOTAL PROTEIN 6.9 g/dL (6.4-8.2)
== END | disposition home or self-care (01) ==
LOC: LAB 13:08
PROVIDERS: ATTEND Internal Medicine
DX: J43.9 Emphysema, unspecified (principal); R91.8 Other nonspecific abnormal finding of lung field; J18.9 Pneumonia, unspecified organism; R94.5 Abnormal results of liver function studies
CPT/HCPCS: 36415; 71046; 80076

== ENCOUNTER → 2020-11-13 | Outpatient (CLI) | payer OTHER ==
[~2020-11-13] MED LIST changes: -ACYC-113 PO; -ACYC-114 PO; +ACYC-40 PO; +ACYC200C13 PO
[2020-11-13 07:34] LABS: ALANINE AMINOTRANSFERASE 22 U/L (12-78); ALBUMIN 3.8 g/dL (3.4-5.0); ANION GAP 5 mmol/L (5-15); CALCIUM 8.9 mg/dL (8.5-10.1); CHLORIDE 109 mmol/L (98-107); CHOLESTEROL, TOTAL 183 mg/dL (140-239); CREATININE 0.59 mg/dL (0.55-1.02)
[2020-11-13 07:37] LABS: ALKALINE PHOSPHATASE 67 U/L (45-117); CHOL/HDL RATIO 2.6; HDL CHOL % 39 % (28-40); HDL CHOLESTEROL (DIRECT) 71 mg/dL (40-60); LDL CHOLESTEROL,CALCULATED 95 mg/dL (54-169); LDL/HDL RATIO 1.3 (0.5-3.0); TOTAL PROTEIN 6.7 g/dL (6.4-8.2); TRIGLYCERIDES 87 mg/dL (50-200); VLDL CHOLESTEROL 17 mg/dL (0-25)
== END | disposition home or self-care (01) ==
LOC: LAB 07:02
PROVIDERS: ATTEND Internal Medicine Cardiovascular Disease
DX: E78.5 Hyperlipidemia, unspecified (principal)
CPT/HCPCS: 36415; 80053; 80061

== ENCOUNTER → 2020-12-26 | Outpatient (CLI) | payer OTHER | END | disposition home or self-care (01) | LOC: RAD 14:08 | PROVIDERS: ATTEND Physician Assistant | DX: N39.0 Urinary tract infection, site not specified (principal) | CPT/HCPCS: 76770 ==

== ENCOUNTER → 2021-03-05 | Outpatient (CLI) | payer OTHER | END | disposition home or self-care (01) | LOC: CFH 15:42 | PROVIDERS: ATTEND Internal Medicine | DX: J43.9 Emphysema, unspecified (principal); R91.8 Other nonspecific abnormal finding of lung field; I25.10 Atherosclerotic heart disease of native coronary artery without angina pectoris | CPT/HCPCS: 71250 ==